=== PATIENT | female | born 1950 | race Caucasian/White ===

== ENCOUNTER 2016-11-19 15:39 | Emergency (ER) | payer MEDICARE, OTHER ==
[2016-11-19 16:04] LABS: URINE APPEARANCE SLIGHTLY CLOUDY; URINE BILIRUBIN NEGATIVE (NEGATIVE); URINE BLOOD 250 Ery/uL (3+) (NEGATIVE); URINE COLOR YELLOW; URINE GLUCOSE NORMAL (NEGATIVE); URINE KETONE NEGATIVE (NEGATIVE); URINE LEUKOCYTE ESTERASE TRACE (NEGATIVE); URINE NITRITE NEGATIVE (NEGATIVE); URINE PH 5.5 (5-7); URINE PROTEIN 100mg/dL (2+) (NEG - TRACE); URINE UROBILINOGEN 0.2mg/dL (Normal) (NEG-1mg/dL)
[2016-11-19] MEDS ORDERED: NITROFURANTOIN MACROCRYSTAL 100 MG CAPSULE PO ONE (16:07)
--- NOTE | 2016-11-19 16:18 | ER NURSING DOCUMENTATION ---
Nurse's Notes [facility] Name:Leticia Ignacio Age:66 yrs Sex:Female :1950 Arrival Date:11/19/2016 Time:15:39 Bed3 Private MD: Diagnosis:Urinary Tract Infection (UTI) Presentation: 11/19 15:42 Acuity: SOMMER 3 sc1 15:49 Presenting complaint: Patient states: UTI symptoms for several hours. Transition of nv1 care: patient was not received from another setting of care. Notified ED Physician of patient's arrival and CC Chance Gómez notified. 15:49 Method Of Arrival: Private Vehicle nv1 Triage Assessment: 15:51 General: Appears in no apparent distress, well developed, well nourished, well groomed, sc1 Behavior is cooperative, pleasant. Pain: Denies pain. Historical: - Allergies: No known drug Allergies; - Home Meds: 1. Celexa Oral 2. Wellbutrin Oral 3. Acebutolol Oral - PMHx: DEPRESSION; - PSHx: None; - Ebola Screening: : Patient negative for fever greater than or equal to 101.5 degrees Fahrenheit, and additional compatible Ebola Virus Disease symptoms. Patient denies exposure to infectious person. Patient denies travel to an Ebola-affected area in the 21 days before illness onset. No symptoms or risks identified at this time. . - Immunization history: Flu Vaccine < 1 year. - Social history: Smoking status: Patient states was never smoker of tobacco. Patient/guardian denies using alcohol, street drugs, IV drugs, marijuana. Screenin:15 Infectious Disease Risk None. Abuse screen: Denies threats or abuse. Nutritional sc1 screening: No deficits noted. Vital Signs: 15:42 BP 169 / 75; Pulse 84; Resp 16; Temp 98.1; Pulse Ox 92% on R/A; sc1 ED Course: 15:41 Patient arrived in ED. ama 15:42 Rosalba Torres, COURTNEY is Primary Nurse. nv1 15:42 Triage completed. nv1 15:49 Anton Fletcher MD is Attending Physician. cj 15:52 Notified ED Physician of patient's arrival and chief complaint. Dr. Fletcher notified. Arm sc1 band placed on Bed in low position Call Light in Reach Gowned HOB Elevated. 16:15 Valuables Remains with patient. sc1 Administered Medications: 15:58 Drug: Macrodantin 50 mg; Route: PO; nv1 16:14 Follow up: Response: No adverse reaction [facility] 15:58 Drug: Macrodantin 50 mg; Route: PO; nv1 16:14 Follow up: Response: No adverse reaction [facility] Point of Care Testing: Urine Dip: 15:49 pH: 5.5; ; Specific [place]: 1.020; Ketones: Negative; Glucose: Negative; Protein: arc Positive (++); Leukocytes: Trace; Nitrite: Negative ; Blood: Large (+++); Bilirubin: Negative ; Urobilinogen: Normal Outcome: 15:51 Discharge ordered by . cj 16:14 Discharged to home ambulatory. [facility] 16:14 Condition: stable 16:14 Discharge instructions given to patient, Instructed on discharge instructions, follow up and referral plans. medication usage, Demonstrated understanding of instructions, medications, Prescriptions given X 1. 16:16 Patient left the ED. [facility] Signatures: Rosalba Torres RN RN nv1 Anton Fletcher MD MD jm Averdick, Andrew, Reg Reg amNesha Myrick, Reg Reg arc
--- NOTE | 2016-11-19 16:18 | ER PHYSICIAN DOCUMENTATION ---
Physician Documentation [facility] Name:Leticia Ignacio Age:66 yrs Sex:Female :1950 Arrival Date:11/19/2016 Time:15:39 Bed3 Private MD: Anton Bui Disposition: 11/19/16 15:51 Discharged to Home/Self Care. Impression: Urinary Tract Infection (UTI). - Condition is Good. - Discharge Instructions: BLADDER INFECTION, Female (Adult). - Prescriptions for Macrobid 100 mg Oral - take 100 milligram by ORAL route every 12 hours for 7 days; 14 capsule. - Medical Reconciliation form form. - Follow up: Private Physician; When: As needed; Reason: Continuance of care. - Problem is new. - Symptoms have improved. HPI: 11/19 16:09 This 66 yrs old Female presents to ER via Private Vehicle with complaints of jm Urinary Frequency. 16:09 The patient presents with urinary symptoms, dysuria, frequency, hematuria, urgency. jm Onset: The symptoms/episode began/occurred just prior to arrival. Severity of symptoms: in the emergency department the symptoms are unchanged. Historical: - Allergies: No known drug Allergies; - Home Meds: 1. Celexa Oral 2. Wellbutrin Oral 3. Acebutolol Oral - PMHx: DEPRESSION; - PSHx: None; - Ebola Screening: : Patient negative for fever greater than or equal to 101.5 degrees Fahrenheit, and additional compatible Ebola Virus Disease symptoms. Patient denies exposure to infectious person. Patient denies travel to an Ebola-affected area in the 21 days before illness onset. No symptoms or risks identified at this time. . - Immunization history: Flu Vaccine < 1 year. - Social history: Smoking status: Patient states was never smoker of tobacco. Patient/guardian denies using alcohol, street drugs, IV drugs, marijuana. ROS: 16:11 Positive for urinary symptoms, pelvic pain, urinary frequency, hematuria, burning jm with urination, Negative for flank pain. 16:11 Constitutional: Negative for fever. 16:11 Abdomen/GI: Positive for abdominal pain, Negative for nausea, vomiting. Exam: 16:12 Constitutional: The patient appears alert, awake. jm 16:12 Abdomen/GI: Bowel sounds: normal, Palpation: soft, mild abdominal tenderness, in the suprapubic area. 16:12 Back: pain, is absent, CVA tenderness, is absent. 16:12 : CVA tenderness, is absent, Bladder: tenderness, that is mild. Vital Signs: 15:42 BP 169 / 75; Pulse 84; Resp 16; Temp 98.1; Pulse Ox 92% on R/A; wa1 MDM: 15:49 Patient medically screened. 16:13 Differential diagnosis: urinary tract infection. Data reviewed: vital signs, nurses notes, lab test result(s), urinalysis, hematuria, and as a result, I will discharge patient, administer antibiotics. Counseling: I had a detailed discussion with the patient and/or guardian regarding: the historical points, exam findings, and any diagnostic results supporting the discharge/admit diagnosis, the need for outpatient follow up, with the patient's primary care provider. 11/19 16:05 Order name: UA W/O MICRO - MAYLIN, CUL IF IND; Complete Time: 16:09 [facility] 11/20 06:36 Order name: URINE CULTURE [facility] 11/21 07:59 Order name: NEGATIVE SENSITIVITY PANEL [facility] 11/19 15:50 Order name: Urine Dip; Complete Time: 15:54 Dispensed Medications: 15:58 Drug: Macrodantin 50 mg; Route: PO; [facility] 16:14 Follow up: Response: No adverse reaction [facility] 15:58 Drug: Macrodantin 50 mg; Route: PO; wa1 16:14 Follow up: Response: No adverse reaction [facility] Point of Care Testing: Urine Dip: 15:49 pH: 5.5; ; Specific [place]: 1.020; Ketones: Negative; Glucose: Negative; Protein: arc Positive (++); Leukocytes: Trace; Nitrite: Negative ; Blood: Large (+++); Bilirubin: Negative ; Urobilinogen: Normal Signatures: Rosalba Torres RN RN wa1 Anton Fletcher MD MD
== END 2016-11-19 16:17 | disposition home or self-care (01) ==
LOC: ER 15:39
DX: N39.0 Urinary tract infection, site not specified (principal); B96.20 Unspecified Escherichia coli [E. coli] as the cause of diseases classified elsewhere
CPT/HCPCS: 81003; 87077; 87086; 87186; 99282; 99283